=== PATIENT | male | born 1970 | race Caucasian/White ===

== ENCOUNTER 2017-03-07 19:35 | Emergency (ER) | payer OTHER, SELFPAY ==
[2017-03-07 19:41] VITALS: BP 161/98; PULSE 75; RESP 16; TEMP 36.7; O2SAT 93; BMI 44.6
--- NOTE | 2017-03-07 20:01 | XR_ITS ---
XR chest 2V HISTORY: ITS.REASON: SOA ORDERING PHYSICIAN: Milad Paris MD PATIENT AGE: 46 years COMPARISON: 08/09/2016 FINDINGS: The cardiomediastinal silhouette and pulmonary vascularity are within normal limits. Patchy density is present in the right lower lobe and left lower lobe consistent with bibasilar areas of infiltrate. No acute bony abnormalities. IMPRESSION: Bilateral lower lobe patchy areas of infiltrate/pneumonia
[2017-03-07 20:15] VITALS: PULSE 72; PULSE 83
[2017-03-07 20:19] LABS: Basophils % 0.3 % (0.1-2.0); Eosinophils # 0.1 K/mm3 (0.0-0.4); Eosinophils % 1.4 % (0.1-12.0); Hematocrit 47.6 % (42.0-52.0); Hemoglobin 16.5 g/dL (14.1-18.0); Lymphocytes # 1.6 K/mm3 (0.7-4.5); Lymphocytes % 23.6 K/mm3 (10-50); Mean Corpuscular HGB Conc 34.6 g/dL (31.8-35.4); Mean Corpuscular Hemoglobin 30.9 pg (27.0-31.2); Mean Corpuscular Volume 89.2 fl (80-94); Mean Platelet Volume 7.8 fl (7.4-10.4); Monocytes # 0.5 K/mm3 (0.1-1.0); Monocytes % 7.1 % (1.7-9.3); Neutrophils # 4.7 K/mm3 (1.8-7.8); Neutrophils % 67.6 % (37.0-80.0); Platelet Count 279 K/mm3 (142-424); Red Blood Count 5.34 M/mm3 (4.60-6.20); Red Cell Distribution Width 12.6 % (11.5-17.5); White Blood Count 6.9 K/mm3 (4.8-10.8)
--- NOTE | 2017-03-07 20:23 | HMH.EDGENADL ---
ED Disposition Clinical Impression: COPD exacerbation Acute bronchitis Qualifiers: Bronchitis organism: unspecified organism Qualified Code(s): J20.9 - Acute bronchitis, unspecified Disposition: Home, Self-Care Condition on Discharge: Good Instructions: DI for Acute Bronchitis, DI for Chronic Obstructive Pulmonary Disease Additional Instructions: Additional instructions for ACUTE BRONCHITIS: Use Tylenol or Ibuprofen for pain or fever. Rest and plenty of fluids. Return immediately if you have an uncontrollable fever greater than 102 degrees, severe headache or neck stiffness, difficulty breathing or shortness of breath, persistent vomiting, severe sore throat or inability to swallow. See your physician if not improving in 4-5 days. Prescriptions: Albuterol Sulfate [Proair Hfa 90mcg/puff Inh] 2 puffs IH Q4HP PRN #1 inh PRN Reason: Shortness Of Breath Or Wheezing Azithromycin [Zithromax 250mg tab] 250 mg PO DAILY #4 tab predniSONE [Prednisone 20mg Tab] 20 mg PO BID #10 tab Referrals: Anival Trinidad [Primary Care Provider] - - Critical Care Critical Care Time: No Attestation: On 03/07/17, the high probability of a clinically significant, sudden or life threatening deterioration of the following system(s) required my full and direct attention, intervention and personal management. The time I documented below is in addition to time spent performing reported procedures but includes the following listed in this critical care notation. Medical Decision Making - Medical Records Medical records reviewed: Yes: I reviewed the patient's medical records. Vital Signs: 03/07/17 19:41 03/07/17 20:15 Temperature 98.1 F Temperature Source Oral Pulse Rate 72 Pulse Rate [Right Brachial] 75 Respiratory Rate 16 Blood Pressure [Right Arm] 161/98 Blood Pressure Mean [Right Arm] 119 Blood Pressure Source [Right Arm] Automatic Cuff Blood Pressure Position [Right Arm] Sitting 02 Sat by Pulse Oximetry 93 L Oxygen Delivery Method Room Air - Lab Data Lab results reviewed: Yes: I reviewed the patient's lab results. Lab Results 03/07/17 20:00: WBC 6.9, RBC 5.34, Hgb 16.5, Hct 47.6, MCV 89.2, MCH 30.9, MCHC 34.6, RDW 12.6, Plt Count 279, MPV 7.8, Neut % (Auto) 67.6, Lymph % (Auto) 23.6, [place] % (Auto) 7.1, Eos % (Auto) 1.4, Baso % (Auto) 0.3, Neut # (Auto) 4.7, Lymph # (Auto) 1.6, [place] # (Auto) 0.5, Eos # (Auto) 0.1, Baso # (Auto) 0.0 03/07/17 20:00: Sodium 135 L, Potassium 3.7, Chloride 97 L, Carbon Dioxide 30, Anion Gap 11.7, BUN 8, Creatinine 0.58 L, Estimated Creat Clear 135, Estimated GFR 152, Est GFR ( Amer) 183, Glucose 159 H, Calcium 8.6, Total Bilirubin 0.6, AST 38 H, ALT 56, Alkaline Phosphatase 111, Total Creatine Kinase 64, CK-MB (CK-2) 0.6, CK-MB (CK-2) Rel Index 0.9, Troponin I < 0.02, Total Protein 7.7, Albumin 3.7, Globulin 4.0 H, Albumin/Globulin Ratio 0.9 L 03/07/17 20:00: Lactic Acid 1.4 03/07/17 20:00: Influenza Type A Ag Negative, Influenza Type B Ag Negative Result diagrams: 03/07/17 20:00 03/07/17 20:00 Orders (Tests/Meds): ED MEDICATIONS Discontinued Medications Generic Name Dose Route Start Last Admin Trade Name Freq PRN Reason Stop Dose Admin Azithromycin 500 mg 03/07/17 20:40 Zithromax 250mg Tablet PO 03/07/17 20:41 ONCE ONE Protocol Methylprednisolone Sodium Succinate 125 mg 03/07/17 20:40 Solu-Medrol 125mg/2ml Vial IV 03/07/17 20:41 ONCE ONE ORDERS Category Date Time Status XR chest 2V Stat Exams 03/07/17 20:01 Taken Blood Culture Stat Micro 03/07/17 20:00 Received ECG Request by /Remy Stat Y 03/07/17 20:01 Ordered - Radiology Data #1 Image(s): Chest X-ray interpreted by Milad Paris M.D.: Atelectasis versus minimal infiltrate left base - ECG Data Tracing #1 EKG interpreted by Milad Paris MD: Rhythm: sinus Rate: 70 [place]: normal Ectopy: none Conduction: normal ST Segment [place]
[2017-03-07 20:34] LABS: Lactic Acid 1.4 mmol/L (0.4-2.0)
[2017-03-07 20:43] LABS: Alanine Aminotransferase 56 U/L (12-78); Albumin Level 3.7 gm/dL (3.4-5.0); Albumin/Globulin Ratio 0.9 (1.1-1.8); Alkaline Phosphatase 111 U/L (46-116); Anion Gap 11.7 mEq/L (5-15); Aspartate Amino Transferase 38 U/L (15-37); Bilirubin,Total 0.6 mg/dL (0.2-1.0); Blood Urea Nitrogen 8 mg/dL (7-18); CKMB Relative Index 0.9 U/L (0-4.0); Calcium 8.6 mg/dL (8.5-10.1); Carbon Dioxide 30 mmol/L (21.0-32.0); Chloride 97 mmol/L (98-107); Creatine Kinase 64 U/L (39-308); Creatine Kinase MB 0.6 mg/ml (0.0-3.6); Creatinine Clearance Estimated 135 mL/min (0-300); Creatinine,Serum 0.58 mg/dL (0.70-1.30); Estimated Glomerular Filt Rate 152 ml/min (>60); GFR (African American) 183 ML/MIN (>60); Glucose 159 mg/dL (74-106); Potassium 3.7 mmoL/L (3.5-5.1); Sodium 135 mmol/L (136-145); Total Protein,Serum 7.7 gm/dL (6.4-8.2); Troponin I < 0.02 ng/ml (0.00-0.06)
[2017-03-07 21:16] VITALS: BP 141/84; PULSE 88; RESP 16; O2SAT 95
== END 2017-03-07 21:20 | disposition home or self-care (01) ==
PROVIDERS: Emergency Provider Emergency Medicine; Family Provider Internal Medicine; PCP Internal Medicine
DX: J44.1 Chronic obstructive pulmonary disease with (acute) exacerbation (principal); J44.0 Chronic obstructive pulmonary disease with (acute) lower respiratory infection; J20.9 Acute bronchitis, unspecified; Z79.51 Long term (current) use of inhaled steroids; Z79.899 Other long term (current) drug therapy; F17.210 Nicotine dependence, cigarettes, uncomplicated
CPT/HCPCS: 71046; 80053; 82550; 82553; 83605; 84484; 85025; 87040; 87275; 87276; 93005; 96374; 99284

== ENCOUNTER 2019-02-11 15:30 | Outpatient (RCR) | payer BC, SELFPAY | END 2019-02-11 15:35 | disposition home or self-care (01) | LOC: PT 15:30 | PROVIDERS: PCP Internal Medicine; Visit Provider Orthopaedic Surgery Adult Reconstructive Orthopaedic Surgery | DX: M25.562 Pain in left knee (principal); Z96.652 Presence of left artificial knee joint | CPT/HCPCS: 97010; 97014; 97016; 97110; 97140; 97163; G0283 ==

== ENCOUNTER 2020-04-04 16:42 | Emergency (ER) | payer BC, SELFPAY ==
[2020-04-04 16:50] VITALS: BP 133/74; PULSE 87; RESP 19; TEMP 36.8; O2SAT 100; BMI 36.8
--- NOTE | 2020-04-04 17:28 | HMH.EDUTC ---
[facility] [place] Clinical Impression: Exposure to COVID-19 virus Sinusitis Qualifiers: Sinusitis location: unspecified location Chronicity: unspecified Qualified Code(s): J32.9 - Chronic sinusitis, unspecified Disposition: Home, Self-Care Condition on Discharge: Good Instructions: DI for COVID-19 (Suspected or Confirmed ), Coronavirus Disease 2019, Sinusitis, DI for Sinusitis Additional Instructions: *Monitor Temp, Over the counter Motrin or Tylenol as directed/as needed Tylenol every 4 hours and Motrin every 6 hours (as long as your family doctor has told you that you can take it) for fever or pain. and straight to ER if unable to lower temp less than 101.0 after medication given Follow up IMMEDIATELY for new or worsening symptoms or no Noticeable improvement over the next 48-72 hours. 911 for difficulty breathing or swallowing You were tested for today for COVID19 your test result should be back in the next 24-48 hours, you may call to the [facility] to see if your test results are back in the next 48 hours [phone] [facility] hours are 9am-9pm You was given a handout with instructions for Self Quarantine and Self isolation for while you wait on test results and what to do if they are positive If you are positive the Health Dept will be contacting you also Prescriptions: Azithromycin [Z-Michael 250mg Tab] 250 mg PO DIRECTED #6 tab Transmission Status: Pending to [facility] Referrals: Gilmar Trinidad [Primary Care Provider] - As needed Forms: Work/School Release Time of Disposition: 17:29 Medical Decision Making - Winston Inquiry Pt receiving controlled substance: No [place] was queried for this patient: No Vital Signs: 04/04/20 16:50 Temperature 98.2 F Temperature Source Oral Pulse Rate [Right Brachial] 87 Respiratory Rate 19 Blood Pressure [Right Arm] 133/74 Blood Pressure Mean [Right Arm] 93 Blood Pressure Source [Right Arm] Automatic Cuff Blood Pressure Position [Right Arm] Sitting 02 Sat by Pulse Oximetry 100 Oxygen Delivery Method Room Air Orders (Tests/Meds): ORDERS Category Date Time Status Covid-19 Nasal PCR ([facility]) Routine Lab 04/04/20 16:58 Received [facility] [place]PI - General Stated complaint: Covid test Time Seen by Provider: 04/04/20 17:28 Mode of Arrival: Ambulatory Source of Information: Patient Limitations: No Limitations Description of Symptoms (Recalled from Triage Doc. by RN): COVID TEST D/T EXPOSURE X 1 WEEK AGO. DENIES SYMPTOMS HEENT Symptoms (Recalled from RN notes): No Resp Symptoms (Recalled from RN notes): No Skin Symptoms (Recalled from RN notes): No MS Symptoms (Recalled from RN notes): No Functional Status (Recalled from RN notes): WNL - History of Present Illness Provider Complaint: Patient states he was around someone about a week ago that tested positive for COVID States that he is a diabetic and has history of COPD States that he has had some sinus pressure and yellowish mucous like he gets every year around this time and has to get treated States that he also wanted to get tested due to exposure - Related Data Home Medications Medication Instructions Recorded Confirmed Albuterol Sulfate [Proair Hfa 2 puff IH Q6HP PRN 05/04/19 05/04/19 90mcg/puff Inh] Budesonide/Formoterol Fumarate 1 puff IH BID 05/04/19 05/04/19 [Symbicort 160-4.5 Mcg Inhaler] Tiotropium [place] [Spiriva 2 cap IH DAILY 05/04/19 05/04/19 18mcg/puff inhaler] Previous Rx's Medication Instructions Recorded Benzonatate [Tessalon Perle 100mg 100 mg PO TID #30 cap 05/04/19 Cap] Minocycline HCl [Minocycline HCl 100 mg PO BID #20 tab 05/04/19 100mg Tab*] predniSONE [Prednisone 20mg 20 mg PO BID #10 tab 05/04/19 Tab] Azithromycin [Z-Michael 250mg Tab] 250 mg PO DIRECTED #6 tab 04/04/20 Allergies Allergy/AdvReac Type Severity Reaction Status Date / Time Penicillins Allergy Verified 04/27/19 14:59 - Worker's Comp Is this a Worker's Comp case?: No
[2020-04-04 17:43] VITALS: BP 133/74; PULSE 87; RESP 19; TEMP 36.8; O2SAT 100
== END 2020-04-04 17:46 | disposition home or self-care (01) ==
PROVIDERS: Emergency Provider Nurse Practitioner; PCP Pediatrics
DX: Z20.822 Contact with and (suspected) exposure to COVID-19 (principal); J32.9 Chronic sinusitis, unspecified; J44.9 Chronic obstructive pulmonary disease, unspecified; E11.9 Type 2 diabetes mellitus without complications; Z88.0 Allergy status to penicillin; Z79.899 Other long term (current) drug therapy
CPT/HCPCS: 99202; G0463; U0003

== ENCOUNTER 2020-09-25 09:55 | Emergency (ER) | payer BC, SELFPAY ==
--- NOTE | 2020-09-25 11:06 | HMH.EDUTC ---
[facility] [place] Clinical Impression: Exposure to COVID-19 virus Disposition: Home, Self-Care Condition on Discharge: Good Instructions: Preventing the Spread of Coronavirus Discharge Instructions Additional Instructions: Drink plenty of fluids. Take tylenol for pain or fever. Return if you begin to have difficulty breathing. Follow up with your regular doctor. GO TO THE ER FOR ANY WORSENING SYMPTOMS Referrals: Anival Trinidad [Primary Care Provider] - Forms: Work/School Release Time of Disposition: 11:07 Medical Decision Making - Medical Records Medical records reviewed: No: I reviewed the patient's medical records. - Winston Inquiry Pt receiving controlled substance: No Vital Signs: 09/25/20 11:11 09/25/20 11:19 Temperature 98.7 F 98.7 F Temperature Source Oral Pulse Rate 71 Respiratory Rate 20 20 Blood Pressure 130/79 Blood Pressure [Right Arm] 130/79 Blood Pressure Mean [Right Arm] 96 02 Sat by Pulse Oximetry 97 Orders (Tests/Meds): ORDERS Category Date Time Status Covid-19 Nasal PCR ([facility]) Routine Lab 09/25/20 11:12 Received [facility] [place] - General Stated complaint: covid test Time Seen by Provider: 09/25/20 11:30 - History of Present Illness Provider Complaint: He is here for a covid test. He was exposed to covid at his work. He denies any symptoms. - Related Data Home Medications Medication Instructions Recorded Confirmed Albuterol Sulfate [Proair Hfa 2 puff IH Q6HP PRN 05/04/19 05/04/19 90mcg/puff Inh] Budesonide/Formoterol Fumarate 1 puff IH BID 05/04/19 05/04/19 [Symbicort 160-4.5 Mcg Inhaler] Tiotropium [place] [Spiriva 2 cap IH DAILY 05/04/19 05/04/19 18mcg/puff inhaler] Previous Rx's Medication Instructions Recorded Benzonatate [Tessalon Perle 100mg 100 mg PO TID #30 cap 05/04/19 Cap] Minocycline HCl [Minocycline HCl 100 mg PO BID #20 tab 05/04/19 100mg Tab*] predniSONE [Prednisone 20mg 20 mg PO BID #10 tab 05/04/19 Tab] Azithromycin [Z-Michael 250mg Tab] 250 mg PO DIRECTED #6 tab 04/04/20 Allergies Allergy/AdvReac Type Severity Reaction Status Date / Time Penicillins Allergy Verified 09/25/20 11:19 [facility] History - Hepatitis A Screen Attestation statement:: This patient has been screened for Hepatitis A risk factors. I have reviewed the patient's past medical history: Yes Medical History: Reports:: Chronic Obstructive Pulmonary Disease (COPD), Diabetes Mellitus Type 2 Other Surgeries: Yes: No Previous Surgery - Social History Smoking Status: Current every day smoker Tobacco Type: cigarettes # Packs/Day (cigarettes): 1 Alcohol Intake: never Substance Use Type: denies use Occupational Status: other Housing: house ROS Obtained: Yes All systems reviewed & no additional complaints - Constitutional Constitutional: Reports system reviewed and no additional complaints, except as docu - Eyes Eyes: Reports system reviewed and no additional complaints, except as docu - ENT Ears, Nose, Mouth, and Throat: Reports system reviewed and no additional complaints, except as docu - Cardiovascular Cardiovascular: Reports system reviewed and no additional complaints, except as docu - Respiratory Respiratory: Reports system reviewed and no additional complaints, except as docu - Gastrointestinal Gastrointestingal: Reports: system reviewed and no additional complaints, except as docu Physical Exam - General General appearance: alert, in no apparent distress - Head Head exam: atraumatic, normocephalic, normal inspection - Eye Eye exam: Present: normal appearance, PERRL, EOMI - ENT ENT exam: Present: normal exam, normal oropharynx, mucous membranes moist, TM's normal bilaterally, normal external ear exam - Neck Neck exam: Present: normal inspection, full ROM, trachea midline. Absent: meningismus, lymphadenopathy - Chest Chest inspection: Present: normal inspection, symmetric chest wall r
[2020-09-25 11:11] VITALS: BP 130/79; RESP 20; TEMP 37.1; O2SAT 97; BMI 36.2
[2020-09-25 11:19] VITALS: BP 130/79; PULSE 71; RESP 20; TEMP 37.1
== END 2020-09-25 11:31 | disposition home or self-care (01) ==
PROVIDERS: Emergency Provider Nurse Practitioner Family; PCP Internal Medicine
DX: Z20.822 Contact with and (suspected) exposure to COVID-19 (principal); J44.9 Chronic obstructive pulmonary disease, unspecified; E11.9 Type 2 diabetes mellitus without complications; F17.210 Nicotine dependence, cigarettes, uncomplicated
CPT/HCPCS: 99202; G0463; U0003

== ENCOUNTER 2020-11-25 15:04 | Emergency (ER) | payer OTHER, SELFPAY ==
[2020-11-25 15:06] VITALS: BP 133/79; PULSE 89; RESP 20; TEMP 37.2; O2SAT 98; BMI 37.9
--- NOTE | 2020-11-25 15:24 | ECG_ITS ---
APPROVED REPORT Exam: Resting ECG HR:83 bpm ECG Measurements Heart Rate 83 AXES MD 146 P 66 QRSd 88 QRS 30 QT 332 T 58 QTc 390 Conclusion Normal sinus rhythm Normal ECG Electronically signed by : Tariq Fisher MD 11/27/2020 21:24:04
--- NOTE | 2020-11-25 15:25 | HMH.EDGENADL ---
ED Disposition Clinical Impression: COPD exacerbation Disposition: Home, Self-Care Condition on Discharge: Fair Instructions: DI for Chronic Obstructive Pulmonary Disease Additional Instructions: Continue prednisone. Nebulizer treatments with DuoNeb 4 times a day. Follow-up with primary care provider on Friday. Return to ER if worsening shortness of breath. Prescriptions: Nebulizer [Altera Nebulizer] 1 each MC QID #1 each Transmission Status[facility] Ipratropium/Albuterol Sulfate [Duoneb 3mL neb] 3 ml IH QID #30 each Transmission Status: [facility] predniSONE [Prednisone 20mg Tab] 20 mg PO BID #10 tab Transmission Status: [facility] Referrals: Gilmar Trinidad [Primary Care Provider] - - Critical Care Critical Care Time: No Attestation: On 11/25/20, the high probability of a clinically significant, sudden or life threatening deterioration of the following system(s) required my full and direct attention, intervention and personal management. The time I documented below is in addition to time spent performing reported procedures but includes the following listed in this critical care notation. Medical Decision Making - Winston Inquiry Pt receiving controlled substance: No Vital Signs: 11/25/20 15:06 Temperature 98.9 F Temperature Source Oral Pulse Rate [Radial] 89 Respiratory Rate 20 Blood Pressure [Right Arm] 133/79 Blood Pressure Mean [Right Arm] 97 Blood Pressure Position [Right Arm] Sitting 02 Sat by Pulse Oximetry 98 Oxygen Delivery Method Room Air - Lab Data Lab Results 11/25/20 15:20: SARS-CoV-2 (PCR) Not detected, Influenza A Untype (PCR) Not detected, Influenza Type B (PCR) Not detected 11/25/20 15:27: WBC 7.3, RBC 5.45, Hgb 17.0, Hct 50.2, MCV 92.0, MCH 31.2, MCHC 33.9, RDW 13.0, Plt Count 325, MPV 7.6, Neut % (Auto) 66.2, Lymph % (Auto) 21.3, [place] % (Auto) 10.0 H, Eos % (Auto) 0.5, Baso % (Auto) 1.9, Neut # (Auto) 4.9, Lymph # (Auto) 1.6, [place] # (Auto) 0.7, Eos # (Auto) 0.0, Baso # (Auto) 0.1 11/25/20 15:27: Sodium 135 L, Potassium 4.1, Chloride 97 L, Carbon Dioxide 32 H, Anion Gap 10.1, BUN 8 L, Creatinine 0.40 L, Estimated Creat Clear 317 H, Estimated GFR 229, Est GFR ( Amer) 277, Glucose 121 H, Calcium 9.0, Troponin I < 0.01 Result diagrams: 11/25/20 15:27 11/25/20 15:27 Orders (Tests/Meds): ED MEDICATIONS Discontinued Medications Generic Name Dose Route Start Last Admin Trade Name Freq PRN Reason Stop Dose Admin Albuterol/Ipratropium 3 ml 11/25/20 15:33 11/25/20 15:49 Ipratropium/Albuterol 3 Ml [facility] 11/25/20 15:34 3 ml ONCE ONE Administration Albuterol/Ipratropium 3 ml 11/25/20 17:36 11/25/20 17:40 Ipratropium/Albuterol 3 Ml [facility] 11/25/20 17:37 3 ml ONCE ONE Administration Methylprednisolone Sodium Succinate 125 mg 11/25/20 15:33 11/25/20 15:49 Methylprednisolone Sod Succ 125mg Vial IV 11/25/20 15:34 125 mg ONCE ONE Administration - Radiology Data #1 Image(s): Chest Image Reviewed: Yes I reviewed the patient's radiology image, Yes I have reviewed radiologist's interpretation PROCEDURE INFORMATION: Exam: XR Chest Exam date and time: 11/25/2020 3:27 PM Age: 50 years old Clinical indication: Shortness of breath; Patient HX: Current smoker; Additional info: SOB TECHNIQUE: Imaging protocol: XR of the chest. Views: 2 views. COMPARISON: CR XR CHEST 2V 05/04/2019 4:42 AM FINDINGS: Lungs: Unremarkable. No consolidation. Probable calcified nodule on the left again seen. Pleural spaces: Unremarkable. No pleural effusion. No pneumothorax. Heart/Mediastinum: Unremarkable. No cardiomegaly. Bones/joints: Unremarkable. IMPRESSION: No acute findings. - ECG Data Tracing #1 EKG interpreted by Milad Paris MD: Rhythm: sinus Rate: 83 [place]: n
[2020-11-25 15:38] LABS: Coronavirus 19, PCR Not Detected (NotDetected); Influenza A, PCR Not Detected (NotDetected); Influenza B, PCR Not Detected (NotDetected)
[2020-11-25 15:38] LABS: Basophils # 0.1 K/mm3 (0-0.2); Basophils % 1.9 % (0.1-2.0); Eosinophils % 0.5 % (0.1-12.0); Hematocrit 50.2 % (42.0-52.0); Lymphocytes # 1.6 K/mm3 (0.7-4.5); Lymphocytes % 21.3 % (10-50); Mean Corpuscular HGB Conc 33.9 g/dL (31.8-35.4); Mean Corpuscular Hemoglobin 31.2 pg (27.0-31.2); Mean Platelet Volume 7.6 fl (7.4-10.4); Monocytes # 0.7 K/mm3 (0.1-1.0); Neutrophils # 4.9 K/mm3 (1.8-7.8); Neutrophils % 66.2 % (37.0-80.0); Platelet Count 325 K/mm3 (142-424); Red Blood Count 5.45 M/mm3 (4.60-6.20); White Blood Count 7.3 K/mm3 (4.8-10.8)
[2020-11-25 15:48] LABS: Anion Gap 10.1 mEq/L (5-15); Blood Urea Nitrogen 8 mg/dl (9-20); Carbon Dioxide 32 mmol/L (22.0-30.0); Chloride 97 mmol/L (98-107); Creatinine Clearance Estimated 317 mL/min (50-200); Estimated Glomerular Filt Rate 229 ml/min (>60); GFR (African American) 277 ML/MIN (>60); Glucose 121 mg/dl (74-100); Potassium 4.1 mmoL/L (3.5-5.1); Sodium 135 mmol/L (136-145)
[2020-11-25 16:02] LABS: Troponin I < 0.01 ng/ml (0.00-0.034)
[2020-11-25 19:14] VITALS: BP 135/68; PULSE 88; RESP 28; TEMP 36.6; O2SAT 92
== END 2020-11-25 19:15 | disposition home or self-care (01) ==
PROVIDERS: Emergency Provider Emergency Medicine; PCP Pediatrics
DX: J44.1 Chronic obstructive pulmonary disease with (acute) exacerbation (principal); Z72.0 Tobacco use; Z88.0 Allergy status to penicillin
CPT/HCPCS: 71046; 80048; 84484; 85025; 93005; 96365; 99283; C9803; U0003; U0005

== ENCOUNTER 2021-04-17 14:18 | Emergency (ER) | payer OTHER, SELFPAY ==
[2021-04-17 14:19] VITALS: BP 141/78; PULSE 71; RESP 16; TEMP 36.8; O2SAT 97; BMI 33.6
--- NOTE | 2021-04-17 14:35 | HMH.EDUTC ---
[facility] [place] Disposition Clinical Impression: Foreign body, eye Qualifiers: Encounter type: initial encounter Laterality: left Qualified Code(s): T15.92XA - Foreign body on external eye, part unspecified, left eye, initial encounter Disposition: Home, Self-Care Condition on Discharge: Good Additional Instructions: Go straight to [facility] to have exam go straight from leaving the [facility] Further instructions per Dr Romero Referrals: Anival Trinidad [Primary Care Provider] - As needed Time of Disposition: 14:58 Medical Decision Making - Winston Inquiry Pt receiving controlled substance: No [place] was queried for this patient: No Vital Signs: 04/17/21 14:19 04/17/21 15:20 Temperature 98.3 F 98.0 F Temperature Source Oral Oral Pulse Rate 70 Pulse Rate [Right] 71 Respiratory Rate 16 16 Blood Pressure 140/72 Blood Pressure [Right Arm] 141/78 H Blood Pressure Mean [Right Arm] 99 Blood Pressure Source Automatic Cuff Blood Pressure Source [Right Arm] Automatic Cuff Blood Pressure Position Sitting Blood Pressure Position [Right Arm] Sitting 02 Sat by Pulse Oximetry 97 Oxygen Delivery Method Room Air Room Air - Physician Consults Physician Consulted: Dr Luis Felipe Romero Time: 14:59 Comment/Response: Spoke with Dr Romero and he advised to send patient down to clinic for removal of FB and exam [facility] [place] HPI - General Stated complaint: 04/17, left eye pain Time Seen by Provider: 04/17/21 14:44 Mode of Arrival: Ambulatory Source of Information: Patient Limitations: No Limitations Description of Symptoms (Recalled from Triage Doc. by RN): Pt thinks she elizabeth have something in his left eye HEENT Symptoms (Recalled from RN notes): Yes (poss. FB in left eye) Resp Symptoms (Recalled from RN notes): No Skin Symptoms (Recalled from RN notes): No MS Symptoms (Recalled from RN notes): No Functional Status (Recalled from RN notes): na - History of Present Illness Provider Complaint: Patient states that he was at work and walked in front of the fan and something blew into his left eye States that he flushed his eye with water, eye drops and he has rubbed it States that he went to several eye doctors in town but they was closed so he came in here States that he is not sure if he has something in his eye or if he may have scratched it because he is still having pain - Related Data Home Medications Medication Instructions Recorded Confirmed Albuterol Sulfate [Proair Hfa 2 puff IH Q6HP PRN 05/04/19 05/04/19 90mcg/puff Inh] Budesonide/Formoterol Fumarate 1 puff IH BID 05/04/19 05/04/19 [Symbicort 160-4.5 Mcg Inhaler] Tiotropium [place] [Spiriva 2 cap IH DAILY 05/04/19 05/04/19 18mcg/puff inhaler] Previous Rx's Medication Instructions Recorded Benzonatate [Tessalon Perle 100mg 100 mg PO TID #30 cap 05/04/19 Cap] Minocycline HCl [Minocycline HCl 100 mg PO BID #20 tab 05/04/19 100mg Tab*] predniSONE [Prednisone 20mg 20 mg PO BID #10 tab 05/04/19 Tab] Azithromycin [Z-Michael 250mg Tab] 250 mg PO DIRECTED #6 tab 04/04/20 Ipratropium/Albuterol Sulfate 3 ml IH QID #30 each 11/25/20 [Duoneb 3mL neb] Nebulizer [Altera Nebulizer] 1 each MC QID #1 each 11/25/20 predniSONE [Prednisone 20mg 20 mg PO BID #10 tab 11/25/20 Tab] Allergies Allergy/AdvReac Type Severity Reaction Status Date / Time Penicillins Allergy Verified 09/25/20 11:19 - Worker's Comp Is this a Worker's Comp case?: No [facility] History - Hepatitis A Screen Drug use history?: No High risk sexual behaviors?: No History of sexually transmitted infection?: No Currently employed?: No Childcare worker?: No Do you have indoor plumbing?: Yes Do you have electricity?: Yes Attestation statement:: This patient has been screened for Hepatitis A risk factors. I have reviewed the patient's past medical history: Yes Medical History: Reports:: Chronic Obstructive Pulmonary Disease (COPD), Diabetes Mellitus Type 2 Other [place]
[2021-04-17 15:20] VITALS: BP 140/72; PULSE 70; RESP 16; TEMP 36.7; O2SAT 98
== END 2021-04-17 15:23 | disposition home or self-care (01) ==
PROVIDERS: Emergency Provider Nurse Practitioner; PCP Internal Medicine
DX: T15.92XA Foreign body on external eye, part unspecified, left eye, initial encounter (principal); W45.8XXA Other foreign body or object entering through skin, initial encounter; Y92.63 Factory as the place of occurrence of the external cause; Y99.0 Civilian activity done for income or pay
CPT/HCPCS: 99213; G0463

== ENCOUNTER 2024-08-23 21:21 | Emergency (ER) | payer OTHER, SELFPAY ==
[2024-08-23 21:28] VITALS: BP 137/75; PULSE 89; RESP 20; TEMP 38.1; O2SAT 93; BMI 40.5
--- NOTE | 2024-08-23 21:29 | ECG_ITS ---
APPROVED REPORT Exam: Resting ECG HR:91 bpm ECG Measurements Heart Rate 91 AXES WI 161 P 143 QRSd 94 QRS -3 QT 315 T 130 QTc 363 Conclusion ECTOPIC ATRIAL RHYTHM LOW QRS VOLTAGE IN EXTREMITY LEADS [QRS DEFLECTION < 0.5 mV IN LIMB LEADS] POSSIBLE RIGHT VENTRICULAR CONDUCTION DELAY [RSR (QR) IN V1/V2] MODERATE ST DEPRESSION [0.05+ mV ST DEPRESSION] ABNORMAL QRS-T ANGLE [QRS-T AXIS DIFFERENCE > 60] ABNORMAL ECG INTERPRETATION BASED ON A DEFAULT AGE OF 41 YEARS Electronically signed by : JORGE RENAE, 08/24/2024 08:27:02
--- NOTE | 2024-08-23 21:35 | XR_ITS ---
PROCEDURE INFORMATION: Exam: XR Chest Exam date and time: 08/23/2024 9:30 PM Age: 54 years old Clinical indication: Shortness of breath TECHNIQUE: Imaging protocol: Radiologic exam of the chest. Views: 2 views. COMPARISON: CR XR CHEST 2V 11/25/2020 3:27 PM FINDINGS: Lungs: Unremarkable. No consolidation. Pleural spaces: Unremarkable. No pleural effusion. No pneumothorax. Heart/Mediastinum: Unremarkable. No cardiomegaly. Vasculature: Unremarkable. Bones/joints: Mild degenerative changes of the thoracic spine. IMPRESSION: No acute findings.
[2024-08-23 21:39] VITALS: PULSE 86; RESP 11; O2SAT 98
[2024-08-23 21:41] LABS: Coronavirus 19, PCR Not Detected (NotDetected); Influenza A, PCR Not Detected (NotDetected); Influenza B, PCR Not Detected (NotDetected)
[2024-08-23 21:44] LABS: Hematocrit 46.5 % (42.0-52.0); Hemoglobin 16.1 g/dL (14.1-18.0); Immature Granulocytes % 0.3 %; Mean Corpuscular HGB Conc 34.6 g/dL (31.8-35.4); Mean Corpuscular Hemoglobin 31.6 pg (27.0-31.2); Mean Corpuscular Volume 91.2 fl (80-94); Nucleated Red Blood Cells % 0 %; Platelet Count 294 K/mm3 (142-424); Red Blood Count 5.10 M/mm3 (4.60-6.20); Red Cell Distribution Width-SD 41.3 fL; White Blood Count 17.7 K/mm3 (4.8-10.8)
--- NOTE | 2024-08-23 21:44 | PC.NURSE ---
Jaz and Brandie NOVOA at bedside to collect blood cultures.
[2024-08-23 21:48] LABS: Lactate Venous 1.3 mmol/L (0.4-2.0); VBG HCO3 28.7 mmol/L (23-30); VBG PCO2 49.8 mmol/L (35-51); VBG PH 7.38 mmol/L (7.31-7.41); VBG PO2 39.3 mmol/L (28-40)
[2024-08-23 21:54] LABS: Alanine Aminotransferase 18 U/L (12-78); Albumin Level 4.9 g/dl (3.5-5.0); Albumin/Globulin Ratio 1.5 (1.1-1.8); Alkaline Phosphatase 78 U/L (38-126); Anion Gap 17.3 mEq/L (5-15); Aspartate Amino Transferase 28 U/L (17-59); Bilirubin,Total 0.7 mg/dl (0.2-1.3); Blood Urea Nitrogen 14 mg/dl (9-20); Calcium 8.7 mg/dl (8.4-10.2); Carbon Dioxide 30 mmol/L (22.0-30.0); Chloride 94 mmol/L (98-107); Creatinine Clearance Estimated 259 mL/min (50-200); Creatinine,Serum 0.50 mg/dl (0.66-1.25); Estimated Glomerular Filt Rate 174 ml/min (>60); GFR (African American) 210 ML/MIN (>60); Globulin 3.2 g/dL (1.3-3.2); Glucose 96 mg/dl (74-100); Potassium 4.3 mmoL/L (3.5-5.1); Sodium 137 mmol/L (136-145); Total Protein,Serum 8.1 g/dl (6.3-8.2)
--- NOTE | 2024-08-23 21:54 | HMH.EDGENADL ---
Discharge Plan Disposition Patient Disposition: Home, Self-Care Prescriptions Prescriptions: New prednisone 50 mg tablet 50 mg PO DAILY 5 Days Qty: 5 0RF levofloxacin 750 mg tablet 750 mg PO DAILY 6 Days Qty: 6 0RF No Action albuterol sulfate 8.5 GM HFA aerosol inhaler 2 puff IH Q6HP PRN (Reason: SOA) Patient Comments: INHALE 1 TO 2 PUFFS BY MOUTH EVERY 4 TO 6 HOURS NEEDED tiotropium bromide 5 CAP capsule, w/inhalation device 2 cap IH DAILY budesonide-formoterol 10.2 GM HFA aerosol inhaler 1 puff IH BID Patient Comments: INHALE 1 PUFF BY MOUTH TWICE DAILY prednisone 20 MG tablet 20 mg PO BID Qty: 10 0RF benzonatate 100 MG capsule 100 mg PO TID Qty: 30 0RF minocycline 100 MG tablet 100 mg PO BID Qty: 20 0RF azithromycin 250 MG tablet 250 mg PO DIRECTED Qty: 6 0RF Rx Instructions: Take two (2) tablets on day #1, then one (1) tablet day #2 thru #5 prednisone 20 MG tablet 20 mg PO BID Qty: 10 0RF ipratropium-albuterol 3 ML solution for nebulization 3 ml IH QID Qty: 30 0RF (DME) nebulizers 1 EACH misc 1 each MC QID Qty: 1 0RF Rx Instructions: may substitute any available nebulizer Referrals Follow up/Referrals: Anival Trinidad [Primary Care Provider, Medical] - See instructions Activity Restrictions/Add. Instructions Additional Instructions/Restrictions: Please take antibiotics and steroids as prescribed for treatment of pneumonia and COPD exacerbation. Please follow-up with your primary care provider. Please return to the emergency department if you develop any new or worsening symptoms or become concerned for your health. Clinical Impressions Clinical Impression: Pneumonia, COPD exacerbation Stand Alone Forms Stand Alone Forms: Work/School Release Print Language Print Language: Bahamian Discharge ED Provider: Tyshawn Garcia General Adult HPI <Tyshawn Garcia MD - Last Filed: 08/24/24 01:47> General Chief complaint: Shortness of Breath/Dyspnea Stated complaint: Feet,legs swelling,flashburn both eyes,SOA Time Seen by Provider: 08/23/24 21:30 Mode of Arrival: Ambulatory Source of Information: Patient Description of Symptoms (Recalled from ER Triage Doc. by RN): py c/o flash burn in both eyes from welding. pt states that he was wearing his welding maskt. Pt also c/o SOB since this afternoon accompanied by swelling in his feet. onset friday History of Present Illness HPI narrative: Johny Rowe is a 54y male with a history of COPD, wears a CPAP at night who presents to the emergency department for complaints of a flush injury to his eyes while welding as well as bilateral leg swelling and shortness of breath. Patient states that since Friday (2 days ago) he has noted swelling in the distal part of both of his legs. He states that today, he is felt more short of breath than normal and used a breathing treatment prior to arrival without much relief. He denies any chest pain. He states that he was welding earlier today with his welding mask on, however failed to close his eyes soon enough while welding and sustained a flash injury to both eyes. He states that he has had these type of injuries in the past and they have done eyedrops. Related Data Home Medications ?Medication ?Instructions ?Recorded ?Confirmed albuterol sulfate 90 mcg/actuation 2 puff IH Q6HP PRN SOA 05/04/19 05/04/19 aerosol inhaler budesonide-formoterol HFA 160 1 puff IH BID COPD 05/04/19 05/04/19 mcg-4.5 mcg/actuation aerosol inhaler tiotropium bromide 18 mcg capsule 2 cap IH DAILY COPD 05/04/19 05/04/19 with inhalation device Previous Rx's ?Medication ?Instructions ?Recorded benzonatate 100 mg capsule 100 mg PO TID #30 caps 05/04/19 minocycline 100 mg tablet 100 mg PO BID #20 tabs 05/04/19 prednisone 20 mg tablet 20 mg PO BID #10 tabs 05/04/19 azithromycin 250 mg tablet 250 mg PO DIRECTED #6 tabs 04/04/20 ipratropium 0.5 mg-albuterol 3 mg 3 ml IH QID #30 ea 11/25/20 (2.5 mg base)/3 mL nebulization soln nebulizers #1 ea 11/25/20 prednisone 20 mg tablet 20 mg PO BID #10 tabs 11/25/20 levofloxacin 750 mg tablet 750 mg PO DAILY 6 days #6 tabs 08/23/24 prednisone 50 mg tablet 50 mg PO DAILY 5 days #5 tabs 08/23/24 Allergies Allergy/AdvReac Type Severity Reaction Status Date / Time Penicillins Allergy Verified 09/25/20 11:19 [facility] <Tyshawn Garcia MD - Last Filed: 08/24/24 01:47> [facility] Disclaimer: The information contained in this section may have been updated after the patient was seen, as this information can be updated by other users. Social History Smoking Status: Current every day smoker tobacco type: cigarettes packs per day: 1 second hand exposure: Yes alcohol intake: never substance use type: denies use current occupational status: other Travel in the last 8 weeks?: None housing: house Have you lived/traveled outside [place] in past 30 days?: No Contact w/someone who lives/traveled outside US past 30 days?: No Exposure to someone with infectious disease in past 14 days?: No Do you have a fever (greater than 100.4 F or 38 C)?: No Have you tested positive for COVID-19?: No Exposed to someone with COVID-19 in past 14 days?: No Do you have a sore throat?: No Do you have a cough?: No Do you have any weakness?: No Do you have any diarrhea?: No Are you experiencing any unusual bleeding?: No Do you have any muscle aches/pain?: No Do you have any abdominal pain?: No Are you experiencing loss of taste or smell?: No Other Medical History Have you received the Flu Vaccine for this season: Yes Have you received the Pneumonia Vaccine: Yes <Tyshawn Garcia MD - Last Filed: 08/24/24 01:47> ROS Obtained: Yes Systems reviewed as appropriate & no additional complaints except as documented Physical Exam <Tyshawn Garcia MD - Last Filed: 08/24/24 01:47> General General appearance: alert, in no apparent distress and obese Head Head exam: atraumatic Eye Eye exam: Present normal appearance, PERRL, EOMI, conjunctival injection (mild) and other (tearing. Visual swenson intact) ENT ENT exam: Present normal external ear exam Neck Neck exam: Present full ROM Chest Chest inspection: Present symmetric chest wall rise Respiratory Respiratory exam: Present normal lung sounds bilaterally, respiratory distress (mild increase work with breathing) and wheezes (mild end expiratory wheezing) Cardiovascular Cardiovascular exam: Present regular rate and normal rhythm Abdominal Exam Abdominal exam: Present soft; Absent tenderness or guarding exam: Present deferred Extremities Exam Extremities exam: Present normal inspection and edema (trace edema to distal bilateral lower extremities. Darkening of the skin to the distal shins bilaterally) Back Exam Back exam: Present normal inspection Neurological Exam Neurological exam: Present alert and oriented X3 Psychiatric Psychiatric exam: Present normal affect Skin Skin exam: Present warm and dry Medical Decision Making <Tyshawn Garcia MD - Last Filed: 08/24/24 01:47> Medical Records Screening: Per USPSTF and CDC recommendations, given the prevalence of disease in our region, it is our hospital?s policy to screen for HIV and viral Hepatitis for all patients aged 18 and over and those with ongoing risk factors. Vital Signs: 08/23/24 21:28 08/23/24 21:39 08/23/24 22:00 Temperature 100.6 F H Temperature Source Axillary Pulse Rate 86 91 H Pulse Rate [Left Radial] 89 Respiratory Rate 20 11 L 19 Blood Pressure 123/66 Blood Pressure [Right Arm] 137/75 Blood Pressure Mean [Right Arm] 95 Blood Pressure Source [Right Arm] Automatic Cuff Blood Pressure Position Blood Pressure Position [Right Arm] Sitting 02 Sat by Pulse Oximetry 93 L 98 94 L Oxygen Delivery Method Room Air 08/23/24 23:10 08/23/24 23:30 08/23/24 23:40 Temperature 98.8 F Temperature Source Oral Pulse Rate 89 75 86 Pulse Rate [Left Radial] Respiratory Rate 16 17 20 Blood Pressure 117/64 140/70 140/70 Blood Pressure [Right Arm] Blood Pressure Mean [Right Arm] Blood Pressure Source [Right Arm] Blood Pressure Position Sitting Blood Pressure Position [Right Arm] 02 Sat by Pulse Oximetry 89 L 93 L Oxygen Delivery Method Room Air Lab Data Lab Results 08/23/24 21:30: WBC 17.7 H, RBC 5.10, Hgb 16.1, Hct 46.5, MCV 91.2, MCH 31.6 H, MCHC 34.6, RDW 12.4, Plt Count 294, MPV 9.3, Neut % (Auto) 79.4, Lymph % (Auto) 12.6, Todd % (Auto) 6.8, Eos % (Auto) 0.6, Baso % (Auto) 0.3, Neut # (Auto) 14.1 H, Lymph # (Auto) 2.2, Todd # (Auto) 1.2 H, Eos # (Auto) 0.1, Baso # (Auto) 0.1, Sodium 137, Potassium 4.3, Chloride 94 L, Carbon Dioxide 30, Anion Gap 17.3 H, BUN 14, Creatinine 0.50 L, Estimated Creat Clear 259, Estimated GFR 174, Est GFR ( Amer) 210, Glucose 96, Calcium 8.7, Total Bilirubin 0.7, AST 28, ALT 18, Alkaline Phosphatase 78, Troponin I < 0.01, NT-Pro-B Natriuret Pep < 20.0, Total Protein 8.1, Albumin 4.9, Globulin 3.2, Albumin/Globulin Ratio 1.5, HCV Ab ALLEN w/Rflx PCR Qn Negative, HIV Ag/Ab Combo Qual Negative 08/23/24 21:35: VBG pH 7.38, VBG pCO2 49.8, VBG pO2 39.3, VBG HCO3 28.7, VBG Total CO2 30.3 H, VBG O2 Saturation 79.6 H, VBG Base Excess 3.6 H, VBG Lactic Acid 1.3 08/23/24 21:36: SARS-CoV-2 (PCR) Not detected, Influenza A Untype (PCR) Not detected, Influenza Type B (PCR) Not detected 08/23/24 21:30 08/23/24 21:30 Orders (Tests/Meds): ED MEDICATIONS Discontinued Medications Generic Name Dose Route Start Last Admin Trade Name Wilson PRN Reason Stop Dose Admin Acetaminophen 1,000 mg 08/23/24 22:11 08/23/24 22:21 Acetaminophen 500mg Tab PO 08/23/24 22:12 1,000 mg ONCE ONE Administration Erythromycin 1 gm 08/23/24 22:11 08/23/24 22:21 Erythromycin Base 1 Gm Oint...G. OP 08/23/24 22:12 1 gm ONCE ONE Administration Azithromycin 500 mg/ Sodium 250 mls @ 250 mls/hr 08/23/24 22:40 08/23/24 23:05 Chloride IV 08/23/24 22:41 250 mls/hr ONCE ONE Administration Ibuprofen 600 mg 08/23/24 22:11 08/23/24 22:21 Ibuprofen 600 Mg Tablet PO 08/23/24 22:12 600 mg ONCE ONE Administration Levofloxacin 750 mg 08/23/24 23:09 08/23/24 23:26 Levofloxacin 750 Mg Tablet PO 08/23/24 23:10 750 mg ONCE ONE Administration ORDERS Category Date Time Status CXR 2 view (NOT portable) [XR chest 2V] Stat Exams 08/23/24 21:35 Completed BNP [NT Pro Brain Natriuretic Pep.] Stat Lab 08/23/24 21:30 Completed CBC w/Auto Diff [Complete Blood Count Auto Diff] Stat Lab 08/23/24 21:30 Completed CMP [Comprehensive Metabolic Panel] Stat Lab 08/23/24 21:30 Completed HIV Combo Stat Lab 08/23/24 21:30 Completed Hepatitis C Ab Qual. W/ RFX Stat Lab 08/23/24 21:30 Completed Rapid PCR Covid and Flu A/B Stat Lab 08/23/24 21:36 Completed Troponin I Stat Lab 08/23/24 21:30 Completed Blood Culture Stat Micro 08/23/24 22:24 Received VBG [Venous Blood Gas] Stat RT 08/23/24 21:35 Completed Medical Decision Narrative: Johny Rowe is a 54y male with a history of COPD, wears a CPAP at night who presents to the emergency department for complaints of a flush injury to his eyes while welding as well as bilateral leg swelling and shortness of breath. Patient states that since Friday (2 days ago) he has noted swelling in the distal part of both of his legs. He states that today, he is felt more short of breath than normal and used a breathing treatment prior to arrival without much relief. He denies any chest pain. He states that he was welding earlier today with his welding mask on, however failed to close his eyes soon enough while welding and sustained a flash injury to both eyes. He states that he has had these type of injuries in the past and they have done eyedrops.On arrival, patient is normotensive, heart rate within normal limits, febrile with temperature of 100.6 ?F, maintaining appropriate oxygen saturation on room air. Physical exam, as stated above, revealed a nontoxic-appearing male in mild respiratory distress. He has some faint wheezing bilaterally. He has some mild edema to his distal bilateral lower extremities as well as some darkening of the skin of the distal shins bilaterally most consistent with venous stasis. He has clear tearing from both eyes, extraocular movements intact, pupils equal round and reactive to light, visual swenson intact. No obvious foreign bodies on inspection. Patient was given a DuoNeb breathing treatment upon arrival. Differential diagnosis includes, but is not limited to: COPD exacerbation, pneumonia, ACS, photokeratitis, CHF, venous insufficiency, among others. The most morbid conditions were considered and workup was based on these. Workup in the emergency department included: 2 view chest x-ray, EKG, CBC, CMP, troponin, BNP, VBG, COVID/flu testing. Patient was given erythromycin ointment for concern for photokeratitis from [place]. Patient was also given Tylenol and ibuprofen for pain relief. Patient's workup showed leukocytosis of 17, negative COVID/flu testing, unremarkable VBG, CMP with anion gap of 17 but otherwise unremarkable and nonactionable initial troponin of 0.01. BNP of 20. Chest x-ray interpreted by me personally. Concern for hazy opacity in the left lower lobe. Patient was given azithromycin and Levaquin in the emergency department due to concern for pneumonia. Ketty GALLEGOS: I assumed care of the patient at the time of handoff from the prior provider. On reassessment patient remains hemodynamically stable. Chest x-ray was independently interpreted by me and shows concern for left-sided pneumonia. Given patient is febrile and symptomatic, we initiated treatment with Levaquin. Interactive discussion was had with patient regarding his presentation. He was discharged with erythromycin ointment as well as prescription for Levaquin and steroids. He is encouraged to follow-up with PCP for further assessment. <Lorenzo Hdez MD - Last Filed: 08/24/24 02:34> Medical Records Medical records reviewed: Yes I reviewed the patient's medical records. [place] Inquiry Pt receiving controlled substance: No Vital Signs: 08/23/24 21:28 08/23/24 21:39 08/23/24 22:00 Temperature 100.6 F H Temperature Source Axillary Pulse Rate 86 91 H Pulse Rate [Left Radial] 89 Respiratory Rate 20 11 L 19 Blood Pressure 123/66 Blood Pressure [Right Arm] 137/75 Blood Pressure Mean [Right Arm] 95 Blood Pressure Source [Right Arm] Automatic Cuff Blood Pressure Position Blood Pressure Position [Right Arm] Sitting 02 Sat by Pulse Oximetry 93 L 98 94 L Oxygen Delivery Method Room Air 08/23/24 23:10 08/23/24 23:30 08/23/24 23:40 Temperature 98.8 F Temperature Source Oral Pulse Rate 89 75 86 Pulse Rate [Left Radial] Respiratory Rate 16 17 20 Blood Pressure 117/64 140/70 140/70 Blood Pressure [Right Arm] Blood Pressure Mean [Right Arm] Blood Pressure Source [Right Arm] Blood Pressure Position Sitting Blood Pressure Position [Right Arm] 02 Sat by Pulse Oximetry 89 L 93 L Oxygen Delivery Method Room Air Lab Data Lab Results 08/23/24 21:30: WBC 17.7 H, RBC 5.10, Hgb 16.1, Hct 46.5, MCV 91.2, MCH 31.6 H, MCHC 34.6, RDW 12.4, Plt Count 294, MPV 9.3, Neut % (Auto) 79.4, Lymph % (Auto) 12.6, Todd % (Auto) 6.8, Eos % (Auto) 0.6, Baso % (Auto) 0.3, Neut # (Auto) 14.1 H, Lymph # (Auto) 2.2, Todd # (Auto) 1.2 H, Eos # (Auto) 0.1, Baso # (Auto) 0.1, Sodium 137, Potassium 4.3, Chloride 94 L, Carbon Dioxide 30, Anion Gap 17.3 H, BUN 14, Creatinine 0.50 L, Estimated Creat Clear 259, Estimated GFR 174, Est GFR ( Amer) 210, Glucose 96, Calcium 8.7, Total Bilirubin 0.7, AST 28, ALT 18, Alkaline Phosphatase 78, Troponin I < 0.01, NT-Pro-B Natriuret Pep < 20.0, Total Protein 8.1, Albumin 4.9, Globulin 3.2, Albumin/Globulin Ratio 1.5, HCV Ab ALLEN w/Rflx PCR Qn Negative, HIV Ag/Ab Combo Qual Negative 08/23/24 21:35: VBG pH 7.38, VBG pCO2 49.8, VBG pO2 39.3, VBG HCO3 28.7, VBG Total CO2 30.3 H, VBG O2 Saturation 79.6 H, VBG Base Excess 3.6 H, VBG Lactic Acid 1.3 08/23/24 21:36: SARS-CoV-2 (PCR) Not detected, Influenza A Untype (PCR) Not detected, Influenza Type B (PCR) Not detected Orders (Tests/Meds): ED MEDICATIONS Discontinued Medications Generic Name Dose Route Start Last Admin Trade Name Wilson PRN Reason Stop Dose Admin Acetaminophen 1,000 mg 08/23/24 22:11 08/23/24 22:21 Acetaminophen 500mg Tab PO 08/23/24 22:12 1,000 mg ONCE ONE Administration Erythromycin 1 gm 08/23/24 22:11 08/23/24 22:21 Erythromycin Base 1 Gm Oint...G. OP 08/23/24 22:12 1 gm ONCE ONE Administration Azithromycin 500 mg/ Sodium 250 mls @ 250 mls/hr 08/23/24 22:40 08/23/24 23:05 Chloride IV 08/23/24 22:41 250 mls/hr ONCE ONE Administration Ibuprofen 600 mg 08/23/24 22:11 08/23/24 22:21 Ibuprofen 600 Mg Tablet PO 08/23/24 22:12 600 mg ONCE ONE Administration Levofloxacin 750 mg 08/23/24 23:09 08/23/24 23:26 Levofloxacin 750 Mg Tablet PO 08/23/24 23:10 750 mg ONCE ONE Administration ORDERS Category Date Time Status CXR 2 view (NOT portable) [XR chest 2V] Stat Exams 08/23/24 21:35 Completed BNP [NT Pro Brain Natriuretic Pep.] Stat Lab 08/23/24 21:30 Completed CBC w/Auto Diff [Complete Blood Count Auto Diff] Stat Lab 08/23/24 21:30 Completed CMP [Comprehensive Metabolic Panel] Stat Lab 08/23/24 21:30 Completed HIV Combo Stat Lab 08/23/24 21:30 Completed Hepatitis C Ab Qual. W/ RFX Stat Lab 08/23/24 21:30 Completed Rapid PCR Covid and Flu A/B Stat Lab 08/23/24 21:36 Completed Troponin I Stat Lab 08/23/24 21:30 Completed Blood Culture Stat Micro 08/23/24 22:24 Received VBG [Venous Blood Gas] Stat RT 08/23/24 21:35 Completed Medical Decision Narrative: Ketty GALLEGOS: I assumed care of the patient at the time of handoff from the prior provider. On reassessment patient remains hemodynamically stable. Chest x-ray was independently interpreted by me and shows concern for left-sided pneumonia. Given patient is febrile and symptomatic, we initiated treatment with Levaquin. Interactive discussion was had with patient regarding his presentation. He was discharged with erythromycin ointment as well as prescription for Levaquin and steroids. He is encouraged to follow-up with PCP for further assessment. Critical Care <Lorenzo Hdez MD - Last Filed: 08/24/24 02:34> Critical Care Time Critical Care Time: No
[2024-08-23 22:00] VITALS: BP 123/66; PULSE 91; RESP 19; O2SAT 94
[2024-08-23 22:06] LABS: NT Pro Brain Natriuretic Pep. < 20.0 pg/mL (0-125)
[2024-08-23] MEDS: ERYTHROMYCIN BASE 1 GM OINT...G. OP (22:21)
[2024-08-23] MEDS: ACETAMINOPHEN 500MG TAB 1000 MG PO (22:21)
[2024-08-23] MEDS: IBUPROFEN 600 MG TABLET PO (22:21)
[2024-08-23 22:23] LABS: Troponin I < 0.01 ng/ml (0.00-0.034)
--- NOTE | 2024-08-23 22:48 | PC.NURSE ---
[address] Garcia of pt meeting SIRS criteria and code sepsis. HR >90 and WBC >12. MD does not wan to give sepsis bolus.
[2024-08-23 23:00] LABS: Hepatitis C Ab Qual. W/ RFX NEGATIVE (Negative)
[2024-08-23] MEDS: AZITHROMYCIN 500 MG in 0.9 % SODIUM CHLORIDE 250 ML 250 MG IV (23:05)
[2024-08-23 23:10] VITALS: BP 117/64; PULSE 89; RESP 16; O2SAT 89
--- NOTE | 2024-08-23 23:24 | PC.NURSE ---
20/70 -Right eye 20/50- left eye 20/40- both eyes
[2024-08-23 23:30] VITALS: BP 140/70; PULSE 75; RESP 17; O2SAT 93
[2024-08-23 23:40] VITALS: BP 140/70; PULSE 86; RESP 20; TEMP 37.1
== END 2024-08-23 23:45 | disposition home or self-care (01) ==
PROVIDERS: Emergency Provider Student in an Organized Health Care Education/Training Program; PCP Internal Medicine
DX: J44.1 Chronic obstructive pulmonary disease with (acute) exacerbation (principal); J18.9 Pneumonia, unspecified organism; F17.210 Nicotine dependence, cigarettes, uncomplicated; W89.0XXA Exposure to welding light (arc), initial encounter; Z11.59 Encounter for screening for other viral diseases; Z11.4 Encounter for screening for human immunodeficiency virus [HIV]
CPT/HCPCS: 71046; 80053; 82803; 83880; 84484; 85025; 86803; 87040; 87389; 87636; 93005; 96374; 99285; J0456; J7050